=== PATIENT | male | born 1955 | race Caucasian/White ===

== ENCOUNTER 2016-06-23 15:01 | Inpatient (IN) | payer OTHER ==
[~2016-06-23] VITALS: Ht 177.8 cm; Wt 67.6 kg
[~2016-06-23 15:01] MED LIST: CLEOCIN HCL300 MG PO; MOT600 PO
[2016-06-23 18:45] LABS: BASOPHIL % 0.3 % (0-2); RED CELL DISTRIBUTION WIDTH 14.1 % (11.5-14.5)
[2016-06-23 18:47] LABS: PLATELET COUNT 451 x10^3mcL (130-400)
[2016-06-23 18:55] LABS: CARBON DIOXIDE 30.2 mmol/L (21-32); CHLORIDE SERUM 100 mmol/L (98-107); CREATININE SERUM 0.8 mg/dL (0.7-1.3); GLUCOSE SERUM 106 mg/dL (74-106); POTASSIUM SERUM 4.3 mmol/L (3.5-5.1); SODIUM SERUM 138 mmol/L (136-145)
[2016-06-23 18:56] LABS: CALCIUM 9.1 mg/dL (8.5-10.1); GFR1 > 60 mL/min
[2016-06-23 19:00] LABS: ALBUMIN 3.5 g/dL (3.4-5.0); ALKALINE PHOSPHATASE 121 U/L (46-116); ALT/SGPT 23 U/L (16-63); AST/SGOT 16 U/L (15-37); BILIRUBIN TOTAL 0.4 mg/dL (0.20-1.00)
[2016-06-23 19:15] LABS: TOTAL PROTEIN, SERUM 8.3 g/dL (6.4-8.2)
[2016-06-23 23:01] VITALS: BP 169/99
[2016-06-24 00:58] VITALS: BP 127/82
[2016-06-24 05:34] VITALS: BP 101/67
[2016-06-24 09:12] VITALS: BP 113/76
[2016-06-24 12:36] VITALS: BP 121/80
[2016-06-24] MEDS ORDERED: KEFLEX500 M1 PO (13:41)
[2016-06-24 14:01] VITALS: BP 113/76
[2016-06-24 14:12] LABS: RED CELL DISTRIBUTION WIDTH 13.6 % (11.5-14.5)
[2016-06-24 14:13] LABS: PLATELET COUNT 434 x10^3mcL (130-400)
[2016-06-24 15:10] LABS: BAND NEUTROPHIL 2 % (0-10); BASOPHIL 0 % (0-2); MONOCYTE 6 % (0-7); SEGMENTED NEUTROPHILS 80 % (37-75); rbc morphology (normal/abnorm) NORMAL (NORMAL)
[2016-06-24 16:08] VITALS: BP 108/71
== END 2016-06-24 19:40 | disposition home or self-care (01) | DRG 383 ==
LOC: ED 15:01 → MU 19:34
PROVIDERS: Emergency Medicine; Internal Medicine Pulmonary Disease; ADMIT Internal Medicine Pulmonary Disease
DX: L03.115 Cellulitis of right lower limb (principal); I10 Essential (primary) hypertension; Z98.890 Other specified postprocedural states; Z91.19 Patient's noncompliance with other medical treatment and regimen
CPT/HCPCS: 83880; J0696; J1650; J2270; J2405; J3490; J7040

== ENCOUNTER 2016-07-02 13:45 | Emergency (ER) | payer OTHER ==
[~2016-07-02] VITALS: Ht 177.8 cm; Wt 70.9 kg
[~2016-07-02 13:45] MED LIST changes: +KEFLEX500 M1 PO
[2016-07-02 18:35] LABS: BASOPHIL % 0.6 % (0-2); RED CELL DISTRIBUTION WIDTH 13.5 % (11.5-14.5)
[2016-07-02 18:37] LABS: PLATELET COUNT 541 x10^3mcL (130-400)
[2016-07-02 18:45] LABS: CALCIUM 9.2 mg/dL (8.5-10.1); CARBON DIOXIDE 35.3 mmol/L (21-32); CHLORIDE SERUM 104 mmol/L (98-107); CREATININE SERUM 0.7 mg/dL (0.7-1.3); GFR1 > 60 mL/min; GLUCOSE SERUM 89 mg/dL (74-106); POTASSIUM SERUM 5.4 mmol/L (3.5-5.1); SODIUM SERUM 144 mmol/L (136-145)
[2016-07-02 18:50] LABS: ALKALINE PHOSPHATASE 119 U/L (46-116); ALT/SGPT 34 U/L (16-63); AST/SGOT 21 U/L (15-37); BILIRUBIN TOTAL 0.14 mg/dL (0.20-1.00); LIPASE 230 IU/L (73-393)
[2016-07-02 18:51] LABS: ALBUMIN 3.3 g/dL (3.4-5.0)
[2016-07-02 20:02] VITALS: BP 167/94
== END 2016-07-02 20:02 | disposition home or self-care (01) ==
LOC: ED 13:45
PROVIDERS: Emergency Medicine
DX: L03.115 Cellulitis of right lower limb (principal); F17.200 Nicotine dependence, unspecified, uncomplicated; Z71.6 Tobacco abuse counseling
CPT/HCPCS: 99406; J0696; J1885; Q0092